=== PATIENT | female | born 1955 | race Caucasian/White ===

== ENCOUNTER 2018-12-22 02:31 | Outpatient (CLI) | payer SELFPAY | END 2018-12-22 23:59 | disposition home or self-care (01) | LOC: HW VAS 02:31 | DX: Z13.6 Encounter for screening for cardiovascular disorders (principal) ==

== ENCOUNTER 2021-03-17 17:06 | Emergency (ER) | payer OTHER, SELFPAY ==
[~2021-03-17] VITALS: Ht 162.6 cm; Wt 47.3 kg
[2021-03-17 17:28] VITALS: BP 171/103
[2021-03-17 17:51] LABS: BASOPHILS # (AUTO) 0.1 X10'3 (0-0.2); BASOPHILS % (AUTO) 0.7 % (0-1); EOSINOPHILS # (AUTO) 0.2 X10'3 (0-0.9); EOSINOPHILS % (AUTO) 1.7 % (0-6); HEMATOCRIT 43.3 % (35.0-45.0); HEMOGLOBIN 15.2 g/dl (12.0-16.0); LYMPHOCYTES % (AUTO) 31.8 % (21-51); MEAN CORPUSCULAR HEMOGLOBIN 35.6 PG (27.0-31.0); MEAN CORPUSCULAR HGB CONC 35.2 g/dL (33.0-36.5); MEAN CORPUSCULAR VOLUME 101.1 FL (78-98); MEAN PLATELET VOLUME 6.4 FL (7.4-10.4); MONOCYTES # (AUTO) 0.6 X10'3 (0-0.9); MONOCYTES % (AUTO) 6.1 % (2-12); NEUTROPHILS # (AUTO) 5.6 X10'3 (1.8-7.7); NEUTROPHILS % (AUTO) 59.7 % (42-75); PLATELET COUNT 390 X10'3 (140-440); RED BLOOD COUNT 4.28 X10'6 (4.20-5.60); RED CELL DISTRIBUTION WIDTH 13.2 % (11.5-14.5); WHITE BLOOD COUNT 9.5 X10'3 (4.5-11.0)
[2021-03-17 18:03] LABS: PARTIAL THROMBOPLASTIN TIME 27 SECONDS (22-32)
[2021-03-17 18:04] LABS: ALANINE AMINOTRANSFERASE 37 U/L (12-78); ALBUMIN 4.1 G/DL (3.4-5.0); ALBUMIN/GLOBULIN RATIO 1.3 (1.1-1.5); ALKALINE PHOSPHATASE 57 IU/L (46-116); ANION GAP 8 (8-16); ASPARTATE AMINO TRANSFERASE 27 U/L (10-37); BILIRUBIN,TOTAL 0.5 MG/DL (0.1-1.0); BLOOD UREA NITROGEN 14 MG/DL (7-18); BUN/CREATININE RATIO 12.5 (6.6-38.0); CALCIUM 9.5 MG/DL (8.5-10.1); CHLORIDE 104 MMOL/L (99-107); CREATININE 1.12 MG/DL (0.40-0.90); GLUCOSE 83 MG/DL (70-104); POTASSIUM 3.9 MMOL/L (3.5-5.1); SODIUM 141 MMOL/L (135-145); TOTAL CARBON DIOXIDE 29.1 MMOL/L (24-32); TOTAL PROTEIN 7.3 G/DL (6.4-8.2); eGFR 49 ML/MIN
[2021-03-17] MEDS ORDERED: IVER3TAB2 PO ×2 (22:09→22:21)
== END 2021-03-17 23:05 | disposition home or self-care (01) ==
LOC: ER 17:07
DX: R19.7 Diarrhea, unspecified (principal); R07.89 Other chest pain; Z88.2 Allergy status to sulfonamides; Z88.8 Allergy status to other drugs, medicaments and biological substances; Z79.899 Other long term (current) drug therapy
CPT/HCPCS: 36415; 71045; 80053; 83735; 83880; 84484; 85025; 85610; 85730; 93005; 99285